=== PATIENT | female | born 1960 | race Caucasian/White ===

== ENCOUNTER → 2023-07-17 | Outpatient (CLI) | payer MEDICAID, SELFPAY ==
[2023-07-18 06:09] LABS: Carcinoembryonic Antigen < 0.6 ng/mL (0.0-4.7)
== END | disposition home or self-care (01) ==
PROVIDERS: PCP Family Medicine; Referring Provider Obstetrics & Gynecology; Visit Provider Obstetrics & Gynecology
DX: N83.8 Other noninflammatory disorders of ovary, fallopian tube and broad ligament (principal)
CPT/HCPCS: 36415; 82378; 86304

== ENCOUNTER → 2023-07-28 | Outpatient (CLI) | payer MEDICAID, SELFPAY ==
--- NOTE | 2023-07-28 18:21 | US_ITS ---
INDICATION: RTO CYST EXAMINATION: Ultrasound US Pelvis Non OB Complete With Transvaginal Imaging COMPARISON: None. FINDINGS: 118 grayscale ultrasound images of the pelvis obtained both transabdominally and transvaginally. Cinematic series provided. In addition dedicated ovarian color Doppler and Doppler waveform interrogation was performed. UTERUS: Uterus measures : 9.8 x 4.4 x 3.7 cm. Endometrial thickness of 1.0 cm. Numerous endocervical cystic changes, atypical for clustered nabothian cysts. Myometrium is unremarkable. ADNEXA: Flow is documented to right ovary by color Doppler as well as Doppler waveform. Heterogeneous mixed echogenic right ovarian 2 cm lesion. Left ovary is not visualized. No significant free fluid. US/Pelvic w/ Transvaginal IMPRESSION: Numerous endocervical cystic changes. Although these may represent numerous clustered nabothian cysts, cystic neoplastic process is not excluded. Complex 2 cm right ovarian lesion in this postmenopausal patient. Above findings may be better evaluated with dedicated pelvic MRI. Left ovary is not visualized. Electronically Signed: Rocco Mckeon MD at 6:32 EST ,
--- OUTSIDE RECORDS SUMMARY | 2023-07-28 20:22 | XMS RPT_ITS | CCD ---
Author Name Unknown Address [address] [place] [address] Organization [facility] Care Team Providers Care Refrigeration Service Inspector Name Role Phone HILLS, AMALIA Primary Care Unavailable [place], AMALIA Consulting Unavailable HILLS, AMALIA Attending Unavailable HILLS, AMALIA Admitting Unavailable PROVIDER, UNKNOWN Consulting Unavailable ZEKE ARELLANO DO Consulting Unavailable CATIE, JASMEET T Admitting Unavailable CATIE, JASMEET T Primary Care Unavailable CATIE, JASMEET T Attending Unavailable PROVIDER, UNKNOWN Consulting Unavailable PROVIDER, UNKNOWN Consulting Unavailable [place], AMALIA Admitting Unavailable [place], AMALIA Primary Care Unavailable [place], AMALIA Consulting Unavailable [place], AMALIA Attending Unavailable PROVIDER, UNKNOWN Consulting Unavailable [place], AMALIA Consulting Unavailable [place], AMALIA Referring Unavailable SANTOS, RACHEL C Admitting Unavailable SANTOS, RACHEL C Primary Care Unavailable SANTOS, RACHEL C Attending Unavailable PROVIDER, UNKNOWN Consulting Unavailable [place]SE, AMALIA Primary Care Unavailable [place], AMALIA Consulting Unavailable [place], AMALIA Attending Unavailable [place], AMALIA Admitting Unavailable PROVIDER, UNKNOWN Consulting Unavailable Allergies Allergy Classification Reported Allergen(s) Allergy Type Date of Onset Reaction(s) Facility (1 source) Codeine Drug Allergy [facility] Repository (1 source) Copper Drug Allergy [facility] Repository (1 source) Ibuprofen Drug Allergy [facility] Repository (1 source) Iodine Drug Allergy [facility] Repository (1 source) Mercury Drug Allergy [facility] Repository (1 source) Zinc Drug Allergy [facility] Repository (1 source) QUAN; Translations: [SILVER] Propensity to adverse reactions (disorder) [facility] Repository (1 source) TIN Drug allergy (disorder) [facility] Repository (1 source) MERCUROCHROME Drug allergy (disorder) [facility] Repository (1 source) MERTHIOLATE Drug allergy (disorder) [facility] Repository Problems Active Problems Problem Classification Problem Date Documented Date Episodic/Chronic Essential hypertension (3 sources) Essential (primary) hypertension; Translations: [Essential (primary) hypertension] Onset: 04-30-2023 Chronic Malaise and fatigue (1 source) Other fatigue; Translations: [Other fatigue] Onset: 04-30-2023 Episodic Nutritional deficiencies (1 source) Vitamin D deficiency, unspecified; Translations: [Vitamin D deficiency, unspecified] Onset: 06-26-2023 Chronic Other screening for suspected conditions (not mental disorders or infectious disease) (4 sources) Encounter for screening mammogram for malignant neoplasm of breast; Translations: [Encounter for screening for cardiovascular disorders] Onset: 04-30-2023 Episodic Past or Other Problems Problem Classification Problem Date Documented Date Episodic/Chronic Biliary tract disease (1 source) Calculus of bile duct without cholangitis or cholecystitis without obstruction; Translations: [Calculus of bile duct without cholangitis or cholecystitis without obstruction] Onset: 03-27-2023 Episodic Results Test Name Value Interpretation Reference Range Facil ity Encounters Encounter Date Encounter Type Care Provider Facility Start: 06-26-2023 ambulatory [facility] Start: 06-26-2023 End: 06-26-2023 Emergency department patient visit [facility] Start: 05-30-2023 End: 05-30-2023 ambulatory [facility] Start: 04-30-2023 End: 04-30-2023 ambulatory [facility] Start: 03-27-2023 ambulatory ZEKE MICHEL [facility] Procedures Date Procedure Procedure Detail Performing Clinician Start: 06-26-2023 Urinalysis AMALIAROSEMARY ALBRIGHTLeroy Payers Date Payer Category Payer Unknown [id number] 1960 Unknown [id number] 1960 Unknown [id number] Unknown [id number] Summary Purpose Family History No Family History Records FoundNo Family History Records FoundNo Family History Records FoundNo Family History Records Found Advance Directives No Advanced Directives Records FoundNo Advanced Directives Records FoundNo Advanced Directives Records FoundNo Advanced Directives Records Found Additional Source Comments INFORMATION SOURCE (unrecogn ized section and content) DATE CREATED AUTHOR AUTHOR'S ORGANIZ ATION 04/30/2022 [facility] [place] DATE CREATED AUTHOR AUTHOR'S ORGANIZ ATION 05/03/2023 [facility] DATE CREATED AUTHOR AUTHOR'S ORGANIZ ATION 06/27/2023 [facility] FOR RECORDS PERTAINING TO PATIENTS WHO ARE OR HAVE BEEN ENROLLED IN A CHEMICAL DEPENDENCY/SUBSTANCEABUSE PROGRAM, SOME INFORMATION MAY BE OMITTED. This clinical summary was aggregated from multiple sources. Caution should be exercised in using it in the provision of clinical care. This summary normalizes information from multiple sources, and as a consequence, information in this document may materially change the coding, format and clinical context of patient data. In addition, data may be omitted in some cases. CLINICAL DECISIONS SHOULD BE BASED ON THE PRIMARY CLINICAL RECORDS. [facility]. provides no warranty or guarantee of the accuracy or completeness of information in this document.
== END | disposition home or self-care (01) ==
LOC: US 18:19
PROVIDERS: PCP Family Medicine; Visit Provider Obstetrics & Gynecology
DX: N83.201 Unspecified ovarian cyst, right side (principal)
CPT/HCPCS: 76830; 76856

== ENCOUNTER → 2023-08-25 | Outpatient (CLI) | payer MEDICAID, SELFPAY ==
--- NOTE | 2023-08-25 | CER_PTH ---
PATIENT: HENRIQUE FELICIANO LOC: [facility]#:[id number] AGE/SX: 62/F ROOM: RE08/25/[address]: Dr. Rufina Linares DO : 1960 BED: DIS: 08/25/2023 SPEC #: [id number] RECD: 08/25/23 16:45 STATUS: ADRIA ELIA #: [id number] STEPHEN: 08/25/23 00:[address]: Rufina Linares DEPT: SURGICAL PATHOLOGY RECD BY: Apryl Zapata ENTERED: 08/26/23 08:43 SP TYPE: CERV OTHR DR: Zo Otero PA-C Tissues: A - Uterine cervix, NOS B - Endocervical Procedures: Surgery Specimen Level IV HEADER OPERATION: Colposcopy, Endometrial biopsy PRE-OP DIAGNOSIS: Right ovarian mass TISSUE SUBMITTED: A- 12o'clock, B- Endometrial lining MICROSCOPIC DIAGNOSIS A. Cervix 12o'clock, biopsy: Negative for dysplasia. Chronic inflammation. B. Endometrial biopsy: Scant fragments of benign endometrial epithelium and benign endocervical epithelium. See comment. / 08/27/23 COMMENT B. Correlation with clinical findings and appropriate follow up are necessary. MICROSCOPIC DESCRIPTION Slides are reviewed. GROSS DESCRIPTION A. Received in fixative is one container labeled with the patient's name and designated 12 o'clock cervix. The specimen consists of one irregular fragment of light harris soft tissue that measures 0.2 x 0.2 x 0.1 cm. The specimen is totally submitted in one cassette. B. Received in fixative is one container labeled with the patient's name and designated Endometrial biopsy. The specimen consists of a scant amount of soft tissue. The specimen is totally submitted for cell block preparation. Minute fragments of tissue are also noted and submitted entirely in one cassette in cassette number two. [facility] 08/26/23 TC:3 CPT:98437z2
[2023-09-02 13:08] LABS: HPV APTIMA, High Risk Negative (Negative)
== END | disposition home or self-care (01) ==
LOC: LABSPEC 17:08
PROVIDERS: PCP Family Medicine; Referring Provider Obstetrics & Gynecology; Visit Provider Obstetrics & Gynecology
DX: N83.8 Other noninflammatory disorders of ovary, fallopian tube and broad ligament (principal); Z12.4 Encounter for screening for malignant neoplasm of cervix
CPT/HCPCS: 87624; 88175; 88305; G0145

== ENCOUNTER → 2023-09-11 | Outpatient (CLI) | payer MEDICAID, SELFPAY ==
--- NOTE | 2023-09-11 08:04 | MRI_ITS ---
STUDY: MR PELVIS WITH T WITHOUT CONTRAST REASON FOR EXAM: Female, 62 years old. ovarian mass TECHNIQUE: Standardized fat and water weighted pulse sequences were obtained in all 3 orthogonal planes, pre-and post contrast administration. IV 20ML CLARISCAN was administered for the contrast portion of the examination. COMPARISON: Ultrasound 07/28/2023 FINDINGS: Normal urinary bladder. Normal visualized small intestine. There are multiple colonic diverticula of the sigmoid colon consistent with chronic diverticulosis. Normal visualized uterus. Nabothian cysts in the cervix. Examination the right ovary demonstrates a 2.0 cm of the oval mass of fat intensity with saturation on fat sat images and without solid contrast enhancement of the right ovary consistent with an ovarian dermoid. The left ovaries are not clearly visualized. There is no pelvic fluid. There is no pelvic mass lesion or lymphadenopathy. Normal visualized pelvic arteries. Normal osseous structures. Normal abdominal wall. MRI/Pelvis W/WO Contrast IMPRESSION: 2 cm right ovarian dermoid. Electronically Signed: Roney Farmer MD at 16:57 EDT ,
[2023-09-11 13:51] LABS: CREATININE FINGERSTICK 1.2 mg/dL (0.55-1.02)
== END | disposition home or self-care (01) ==
PROVIDERS: PCP Family Medicine; Referring Provider Obstetrics & Gynecology; Visit Provider Obstetrics & Gynecology
DX: N83.8 Other noninflammatory disorders of ovary, fallopian tube and broad ligament (principal)
CPT/HCPCS: 72197; A9575

== ENCOUNTER 2023-12-16 09:42 | Day surgery (SDC) | payer MEDICAID, SELFPAY ==
[2023-12-16] VITALS (10 sets, daily range): BP systolic 95–150; BP diastolic 55–104; PULSE 59–69; RESP 14–18; TEMP 36.6–37; O2SAT 93–100; BMI 41.5
--- NOTE | 2023-12-16 09:50 | PCM.PRE.AN2 ---
ASA Classification* ASA Classification ASA Classification: 2 Assessment & Plan Anesthesia* Anesthesia Assessment Anesthesia Assessment: Discussed sedation and/or anesthesia options, risks, benefits, and alternatives with patient/parents/legal guardian/POA. Questions invited. The patient/parents/legal guardian/POA seems to understand and agrees to proceed with anesthesia plan. Reviewed the physical assessment, medical history, allergy history and patient home medications list prior to surgery/procedure/anesthetic and documented any changes. Performed airway and anesthesia risk assessments. 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 When Was Last Pacemaker Check QUESTION #4 FULL TEXT: You/Your Family Experience fever (hyperthermia) with Anesthesia Last Oral Intake Last Oral intake: Last Oral Intake NPO since Meds taken in AM with sips of water? Meds patient instructed to take am of surgery PONV PONV - metallurgical analyst: PONV - metallurgical analyst Female Yes 12/08/23 13:16 HX of Motion Sickness Yes 12/08/23 13:16 HX of N/V After Surgery No 12/08/23 13:16 Non-Smoker Yes 12/08/23 13:16 Duration of Surgery greater Yes 12/08/23 13:16 than 60 minutes Number of Risk Factors 4 12/08/23 13:16 PONV Score Severe Risk 12/08/23 13:16 Height & Weight Height & Weight: Anesthesia: Height & Weight Height 5 ft 2 in 12/05/23 15:57 Respiratory Assessment Respiratory Assessment - metallurgical analyst: Respiratory Tract Infection Hx - metallurgical analyst Hx Respiratory Tract Infection No 12/08/23 13:16 STOP Sleep Apnea STOP Sleep Apnea - metallurgical analyst: STOP Sleep Apnea - metallurgical analyst Hx Hypertension Yes: CONTROLLED WITH MEDS 12/08/23 13:16 Hx Sleep Apnea No 12/08/23 13:16 CPAP BIPAP Do you snore loudly (louder No 12/08/23 13:16 than talking or can be heard Do you often feel tired/ No 12/08/23 13:16 fatigued/ sleepy during daytime? Has anyone observed you stop No 12/08/23 13:16 breathing during sleep? STOP Results Negative 12/08/23 13:16 QUESTION #5 FULL TEXT : Do you snore loudly (louder than talking or can be heard through closed doors)? 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 Specify any problems Hx of Preganancy in last 3 No 12/08/23 13:16 Months Nurse Filling Out Transfusion DSCHRIBER 12/08/23 13:16 & Questions: Date: 12/08/23 12/08/23 13:16 Time: 13:18 12/08/23 13:16 Patient unable to answer at this time (ie. confused, unrespo /Reproduction History /Reproductive History - metallurgical analyst: /Reproductive Hx- metallurgical analyst Hx Now No 12/08/23 13:16 Gestational Age (in weeks): EDC: Hx Hx Para Hx Section SAB No 12/08/23 13:16 Active Medications Active Medications: Current Medications Generic Name Dose Route Start Last Admin Trade Name Freq PRN Reason Stop Dose Admin Lactated Ringer's 1,000 mls @ 15 mls/hr 12/16/23 10:00 IV .Q48H ROXANNE PFSH Medical History Post-menopausal Wears glasses Anxiety Fatty liver Easy bruising Gastric reflux Leg cramps History of pain when walking Non-smoker Vitamin D deficiency Hypertension Home Medications ?Medication ?Instructions ?Recorded ?Last Taken ?Type lisinopril 20 mg tablet 20 mg PO DAILY 07/17/23 Unknown History metoprolol tartrate 100 mg tablet 100 mg PO DAILY 07/17/23 Unknown History acetaminophen 325 mg capsule 650 mg PO Q4H PRN pain 12/08/23 Unknown History (Tylenol) Allergy/AdvReac Type Severity Reaction Status Date / Time iodine Allergy Mild Hives Verified 12/08/23 13:13 codeine AdvReac Mild Vomiting Verified 12/08/23 13:13 ibuprofen AdvReac Mild Vomiting Verified 12/08/23 13:13 Family History Father Hypertension Parkinsons disease Mother Asthma Dementia Breast cancer paget's Surgical History (Updated 12/08/23 @ 13:39 by Sandee Enriquez) S/P cholecystectomy S/P wisdom tooth extraction Social History Smoking Status: Never smoker alcohol intake: current details: occasionally substance use type: does not use caffeine: Yes what type of physical activity do you participate in: none seatbelt use: always do you feel safe at home: Yes additional social history: -Stewart Review of Systems (Anesthesia) ROS Narrative System reviewed and no additional complaints, except as documented.
[2023-12-16] MEDS: Lactated Ringers 1,000 ML 15 ML IV (10:17)
--- NOTE | 2023-12-16 11:20 | OV_PTH ---
PATIENT: HENRIQUE FELICIANO LOC: [facility] U#:[id number] AGE/SX: 63/F ROOM: RE12/16/[address]: Dr. Rufina Linares DO : 1960 BED: DIS: 12/16/2023 SPEC #: [id number] RECD: 12/16/23 13:48 STATUS: ADRIA ELIA #: [id number] STEPHEN: 12/16/23 11:[address]: Rufina Linares DEPT: SURGICAL PATHOLOGY RECD BY: Apryl Zapata ENTERED: 12/17/23 07:59 SP TYPE: OVARY OTHR DR: Zo Otero PA-C Tissues: Right ovary Procedures: Surgery Specimen Level IV HEADER OPERATION: Laparoscopic, salping-oopherectomy PRE-OP DIAGNOSIS: Right ovarian mass TISSUE SUBMITTED: Right fallopian tube and ovary MICROSCOPIC DIAGNOSIS Right fallopian tube and ovary, salping-oopherectomy: Fallopian tube- no pathologic diagnosis. Papillary cyst adenofibroma (2.0cm in greatest dimension) adjacent to the fallopian tube and ovary. Ovary- mature cystic teratoma (dermoid cyst, 3.0cm in greatest dimension). ROLDAN/ 12/18/2023 COMMENT Case has been reviewed in consultation with Dr. Valdovinos who concurs with the above diagnosis. IDC:AM MICROSCOPIC DESCRIPTION Slides are reviewed. GROSS DESCRIPTION Received in fixative is one container labeled with the patient's name and designated Right fallopian tube and ovary. The specimen consists of fallopian tube and ovary. The fallopian tube measures 5.5cm in length and 0.5cm in diameter. Fimbrial end is identified. Sections reveal unremarkable cut surfaces. A cystic mass is noted adjacent to the fallopian tube and ovary measuring 2.0 x 1.5 x 1.0cm. Outer surface of the cystic mass is inked black. Sections reveal cystic lesion with focal papillations. Soft to cystic ovary. Weigh 14.3gm and measures 3.0 x 3.5 x 2.5cm. Outer surface is smooth and inked black. Cystic ovary is filled with light yellow sebum like material. Take Out Waitress sections are submitted in six cassettes as follows: 1- fallopian tube, 2 and 3- cystic mass adjacent to the fallopian tube, entirely submitted, 4-6- ovary. Dell 12/17/2023 TC:1 CPT:12807
--- NOTE | 2023-12-16 12:02 | PCM.HP.BLA ---
History and Physical Date of Admission: 12/16/23 Intake Vital Signs 08/24/2413:45 12/04/2414:49 12/04/2414:57 Height 5 ft 2 in 5 ft 2 in 5 ft 2 in Weight: 231 lb 2 oz BMI 42.3 BP 138/81 H Intake Visit Reasons: right ooph Loading Unit Operator Powder Charging Required: No Is patient in pain?: No Allergies iodine Allergy (Mild, Verified 12/05/23 15:48) Hivescodeine Adverse Reaction (Mild, Verified 12/05/23 15:48) Vomitingibuprofen Adverse Reaction (Mild, Verified 12/05/23 15:48) Vomiting Medications ?Medication ?Instructions ?Recorded ?Confirmed ?Type lisinopril 20 mg tablet 20 mg PO DAILY 07/17/23 12/05/23 History metoprolol tartrate 100 mg tablet 100 mg PO DAILY 07/17/23 12/05/23 History Is last menstrual period known: No Post menopausal: Yes Patient : No : No PFSH Medical History Vitamin D deficiency Hypertension Surgical History S/P cholecystectomy S/P wisdom tooth extraction Family History Father Hypertension Parkinsons diseaseMother Asthma Dementia Breast cancer paget's Social History Smoking Status: Never smoker alcohol intake: current details: occasionally substance use type: does not use caffeine: Yes what type of physical activity do you participate in: none seatbelt use: always do you feel safe at home: Yes additional social history: -Stewart HPI right ooph Details: HENRIQUE FELICIANO is a 63 year old who presents for pre-op exam for scheduled right oophorectomy. MRI showed evidence of a 2 cm dermoid tumor and patient is having pain. She is requesting removal. History 3 Elective abortions Hx Para 3 Spontaneous abortions Hx # Term Pregnancies Ectopic pregnancies Hx # Pregnancies Multiple births # of living children Past Pregnancies Del. Date Name GA/Weeks Outcome Route Bth Weight Gen Labor Lgth Anesthesia Del Locatn Provider FOB Unknown Nuria Unknown [place] Unknown Germán ROS Const ROS Unobtainable: All systems reviewed & are unremarkable except as noted in H Resp Resp: Reports system reviewed and no additional complaints, except as documented; Denies cough GI GI: Reports as per HPI Psych Psych: Reports system reviewed and no additional complaints, except as documented Exam Const General: cooperative, healthy appearing, comfortable and no acute distress Resp Effort & Inspection: normal respiratory effort Skin General: no rashes or lesions noted Psych Appearance: grossly normal Speech and Movement: speech and movement normal Coding Level of Care Code Off vis,est,level 4 Diagnoses Ovarian mass, right N83.8 Assessment and Plan Assessment and Plan (1) Ovarian mass, right: Status: Acute Plan: After discussing the patient's diagnosis and treatment plan options, patient wishes to proceed with surgical management. I have discussed with the patient the risks, benefits, and alternatives of the procedure which include but are not limited to risks of anesthesia, bleeding, infection, possible damage to bowel, bladder, or surrounding vasculature which could lead to additional surgery to evaluate any complications. Patient agrees to procedure and wishes to proceed. ACOG/uptodate references given for additional information regarding procedure. plan for zofran + low dose oxycode or hydrocode alone and pt will take home tylenol 1000mg as needed Orders: Orders Vitamin D,25 Hydroxy Today Z13.21 - Encounter for screening for nutritional disorder
--- NOTE | 2023-12-16 12:35 | DCINST_ITS ---
Discharge Instructions Diet Discharge Diet: No restrictions Activity Discharge Activity: Return to Normal Activity, May Not Drive (for two weeks or while taking narcotic pain medications.), May Shower and May Take a Tub Bath (in 7 days) May resume sexual activity in: 1 week Weight Bearing Status: Full weight bearing Lifting Restrictions: 20 pounds Dressing / Incision Call your doctor if you observe: Using more than 1 pad per hour, Shortness of breath, Chest pain and Uncontrolled pain Suture Line Care: Avoid Pulling/Pushing and Avoid Pinching/Bending Remove Dressing in: 1 week (if present) Cleanse incision/area with: Soap & Water and Keep Dressing Clean & Dry Follow Up Care Please Follow Up With: Rufina Linares DO When: Call to make an appointment with your doctor for a follow up incision check in 1-2 weeks. Test Results: Test results from this visit will be discussed in further detail at your follow- up appointment, if applicable. Discharge Plan Admission Attending Provider: Rufina Linares Primary Care Provider: Zo Otero Instructions Print Language: Danish Discharge Orders/Prescriptions Prescriptions: New oxycodone 5 mg capsule 5 mg PO Q4H PRN (Reason: pain) 7 Days Qty: 20 0RF Continued metoprolol tartrate 100 mg tablet 100 mg PO DAILY lisinopril 20 mg tablet 20 mg PO DAILY acetaminophen [Tylenol] 325 mg capsule 650 mg PO Q4H PRN (Reason: pain) Referrals / Follow Up: Zo Otero PA-C [Primary Care Provider] - Disposition Disposition (needs filled in before D/C Order can be placed): Home, Self Care
[2023-12-16] MEDS: Bupivacaine Mpf 0.5% 30 ML VIAL (13:29)
--- NOTE | 2023-12-16 13:39 | OP.PCM_ITS ---
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 Bladder was drained of clear urine and SCDs were on preoperatively. Uterus was sounded and a uterine manipulator was placed after dilating. Attention was then paid to the abdominal portion of the procedure and the umbilicus was elevated and injected with Marcaine and after a 5 mm incision was made and a 5 mm trocar was inserted into the abdomen under direct visualization using the laparoscope. Abdomen was insufflated with CO2 gas and a 5 mm optical trocar was placed under direct visualization. A left lower quadrant 5 mm port and a mini grasper suprapubically were placed under direct visualization. Uterus was well visualized. Both fallopian tubes and ovaries were identified. The left side was normal. The right ovary was normal, however along the mesosalpinx is a 3 cm dermoid mass. The IP ligament was identified and cauterized and cut using the Ligasure device, avoiding proximity to the ureter. Excellent hemostasis was noted. The fallopian tube and ovary were then placed in an endocatch bag and removed through the right lower quadrant site without complication. Liver and upper abdomen were visualized notably within normal limits and no other gross abnormalities were seen in the abdomen. The fascia was closed using a catalina- bob suture closure device and a 1-0 vicryl. All instruments removed from the abdomen after gas was desufflated. Port sites were closed with 3-0 Monocryl Steri's and op sites were applied. All instruments removed from the vagina and patient was awoken and taken recovery in stable condition. Complications none Admit VTE Documentation VTE Present on Admission: No VTE Mechan Device Prophylaxis: SCD's VTE Pharm Prophylaxis ordered?: No Multi Select Codes Urinary/Genital Urinary/Genital CPT Codes: 20354 Laproscopic BS/O
--- NOTE | 2023-12-16 13:55 | PCM.POST.ANE ---
Anesthesia: Postop Eval I Current Vital Signs Temperature: 97.8 F Pulse Rate: 64 Blood Pressure: 98/57 Respiratory Rate: 14 Pulse Ox: 95 Oxygen Delivery Method: Room Air Assessment Airway patent: Yes Spontaneous unlabored respirations: Yes Mental status: Awake and Calm nausea: No Vomiting: No Anesthesia Complication: No Fluid Hydration Crystalloid volume administer (ml): 1,600 Total IV fluid infused: 1,600 Progress Note Anesthesia document: Postop Eval 1 completed: Yes
--- NOTE | 2023-12-16 14:13 | PCM.POSTANE2 ---
Anesthesia Postop Eval I Sum Postop Eval Completion status Anesthesia document: Postop Eval 1 completed: Yes Anesthesia Postop Eval I Summary Anesthesia Postop Eval I Summary: Anesthesia Postop Eval I: Assessment Summary Airway patent Yes 12/16/23 13:56 [email or web address] Spontaneous unlabored Yes 12/16/23 13:56 [email or web address] respirations Mental status Awake,Calm 12/16/23 13:56 [email or web address] nausea No 12/16/23 13:56 [email or web address] Vomiting No 12/16/23 13:56 [email or web address] Anesthesia Postop Eval I: Fluid Summary Crystalloid volume administer 1,600 12/16/23 13:56 [email or web address] (ml) Colloids volume administered ( ml) Blood Product volume administered (ml) Total IV fluid infused 1,600 12/16/23 13:56 [email or web address] Anesthesia Postop Eval I: Summary Notes Anesthesia Complication No 12/16/23 13:56 [email or web address] Anesthesia Complication Comment: Post-operative progress note Anesthesia: Postop Eval II Evaluation Mental status: Awake Pain Level: 0 nausea: No Vomiting: No Complications Anesthesia Complication: No
[2023-12-16] MEDS: Lactated Ringers 1,000 ML 100 ML IV (15:31)
--- NOTE | 2023-12-16 16:53 | SUR.PHASEII ---
pt ready for discharge, awaiting Dr Bucio to sign off prescriptions so pharmacy can fill. Dr Bucio on way back to hospital.
== END 2023-12-16 17:31 | disposition home or self-care (01) ==
LOC: SDC 09:43 → AC 09:45
PROVIDERS: PCP Family Medicine; Referring Provider Obstetrics & Gynecology; Visit Provider Obstetrics & Gynecology
PROC: (CPT 58720; principal; 2023-12-16 11:05)
DX: N83.8 Other noninflammatory disorders of ovary, fallopian tube and broad ligament (principal); D28.2 Benign neoplasm of uterine tubes and ligaments; D27.0 Benign neoplasm of right ovary; I10 Essential (primary) hypertension; Z79.899 Other long term (current) drug therapy
CPT/HCPCS: 58661; 00840; 86850; 86900; 86901; 88305; J7120; J2405